=== PATIENT | female | born 1945 | race Caucasian/White ===

== ENCOUNTER 2019-08-04 08:21 | Day surgery (SDC) | payer MEDICARE, OTHER ==
[~2019-08-04] VITALS: Ht 162.6 cm; Wt 83.5 kg
[~2019-08-04 08:21] MED LIST: EXFORGE; Exforge 10-3201 EACH PO; GABA300 PO; Glyburide5 MG PO; HYDCHL25 PO; HYDMOR4 PO; HYDR.5TC TOP; HYDSUL200 PO; IBUP800 PO; LORA2 PO; METF500 PO; METPRE4DP PO; METTREX2.5 PO; PRED5 PO; REMICADE
== END 2019-08-04 10:38 | disposition home or self-care (01) ==
LOC: ORSCSDS 08:21
PROVIDERS: Ophthalmology
PROC: 08RK3JZ Replacement of Left Lens with Synthetic Substitute, Percutaneous Approach (ICD-10-PCS; principal; 2019-08-04 10:00)
DX: H25.12 Age-related nuclear cataract, left eye (principal); E11.36 Type 2 diabetes mellitus with diabetic cataract; I10 Essential (primary) hypertension; Z79.84 Long term (current) use of oral hypoglycemic drugs; Z79.899 Other long term (current) drug therapy
CPT/HCPCS: 82947; J2001; J2250; J3010; J3301; J7120; V2632

== ENCOUNTER 2019-09-01 07:33 | Day surgery (SDC) | payer MEDICARE, OTHER ==
--- NOTE | 2019-09-01 08:58 | NUR ---
09/01/19 0858 Jamia Redd A YELLOW AREA NOTED ON SCLERA OF EYE. SURGEON AWARE. PATIENT SAID IT'S FROM A RECENT INJECTION INTO HER EYE. SURGEON AWARE OF INJECTION.
== END 2019-09-01 09:26 | disposition home or self-care (01) ==
LOC: ORSCSDS 07:33
PROVIDERS: Ophthalmology
PROC: 08RJ3JZ Replacement of Right Lens with Synthetic Substitute, Percutaneous Approach (ICD-10-PCS; principal; 2019-09-01 09:00)
DX: H25.11 Age-related nuclear cataract, right eye (principal); E11.9 Type 2 diabetes mellitus without complications; I10 Essential (primary) hypertension; Z79.899 Other long term (current) drug therapy; Z79.84 Long term (current) use of oral hypoglycemic drugs
CPT/HCPCS: 82947; J2001; J2250; J3010; J7120; V2632

== ENCOUNTER 2020-08-28 00:13 | Day surgery (SDC) | payer MEDICARE, OTHER | END 2020-08-28 11:27 | disposition home or self-care (01) | LOC: ATC 00:13 | DX: M05.79 Rheumatoid arthritis with rheumatoid factor of multiple sites without organ or systems involvement (principal); I10 Essential (primary) hypertension; Z79.899 Other long term (current) drug therapy; Z79.1 Long term (current) use of non-steroidal anti-inflammatories (NSAID); Z88.0 Allergy status to penicillin; Z88.2 Allergy status to sulfonamides; Z88.8 Allergy status to other drugs, medicaments and biological substances | CPT/HCPCS: 96365; J1602 ==

== ENCOUNTER 2020-10-23 00:08 | Day surgery (SDC) | payer MEDICARE, OTHER ==
--- NOTE | 2020-10-23 15:04 | NUR ---
PT ARRIVED TO THE UNIT WITH INITIAL BP OF 211/89 ON LEFT ARM. RECHECKED BP ON RIGHT ARM AND 206/82. 15 MIN LATER POLINA WHEATLEY DID A MANUAL CHECK ON LEFT ARM WITH READING OF 205/79. PT REPORTS NO CHEST PAIN, NO WEAKNESS IN EXTREMITIES, NO VISUAL CHANGES, NO HEADACHE. PT VISUALLY APPEARS WELL. DR JIANG NOTIFIED OF ELEVATED BY POLINA AGUILERA. OK TO GIVE SIMPONI ARIA WITH ELEVATED BP TODAY, THEN PT TO FOLLOW UP WITH PCP. PCP DR CHAVES CALLED AND OFFERED PT A 6:40PM APPOINTMENT TO BE SEEN TODAY FOR ELEVATED BP. PT UNABLE TO MAKE APPT. DR SUGGESTED PT TO BE SEEN IN ER AFTER INFUSION TODAY. PT AGREES. ER ENROBING MACHINE CORDERPOLINA GORE NOTIFIED THAT PT WILL BE ARRIVING TO ER FOR BP EVAL AT 1530 TODAY. PT REMAINS ASYMPTOMATIC WITH ELEVATED BP'S
[2020-10-23] MEDS ORDERED: Estrace Vagin42.5 GM TOP (15:36)
[2020-10-23] MEDS ORDERED: Ferrous Glucon324 M1 PO (15:36)
[2020-10-23] MEDS ORDERED: GLIP10 PO (15:37)
[2020-10-23] MEDS ORDERED: LOSA50 PO (15:37)
[2020-10-23] MEDS ORDERED: MAGNESIUM OXID500 MG PO (15:37)
[2020-10-23] MEDS ORDERED: OMEP20ER PO (15:38)
[2020-10-23] MEDS ORDERED: PIOG15 PO (15:38)
[2020-10-23] MEDS ORDERED: Hair, Skin & N1 EACH PO (15:38)
[2020-10-23] MEDS ORDERED: NORT25 PO (15:38)
[2020-10-23] MEDS ORDERED: TAMSULOSIN HCL0.4 MG PO (15:39)
[2020-10-23] MEDS ORDERED: SIMPONI AR50 MG/4 M1 IV (15:39)
[2020-10-23] MEDS ORDERED: TOCO1000 PO (15:40)
[2020-10-23] MEDS ORDERED: Vitamin C100 M1 PO (15:40)
== END 2020-10-23 15:25 | disposition home or self-care (01) ==
LOC: ATC 00:08
DX: M05.79 Rheumatoid arthritis with rheumatoid factor of multiple sites without organ or systems involvement (principal); I10 Essential (primary) hypertension; M54.5 Low back pain; Z79.1 Long term (current) use of non-steroidal anti-inflammatories (NSAID); Z79.84 Long term (current) use of oral hypoglycemic drugs; Z79.899 Other long term (current) drug therapy; Z88.0 Allergy status to penicillin; Z88.2 Allergy status to sulfonamides; Z88.8 Allergy status to other drugs, medicaments and biological substances; Z88.5 Allergy status to narcotic agent; Z91.018 Allergy to other foods
CPT/HCPCS: J1602

== ENCOUNTER 2020-10-23 15:26 | Emergency (ER) | payer MEDICARE, OTHER ==
[~2020-10-23] VITALS: Ht 160 cm; Wt 88.5 kg
[2020-10-23] MEDS ORDERED: Ferrous Glucon324 M1 PO (15:36)
[2020-10-23] MEDS ORDERED: Estrace Vagin42.5 GM TOP (15:36)
[2020-10-23] MEDS ORDERED: MAGNESIUM OXID500 MG PO (15:37)
[2020-10-23] MEDS ORDERED: LOSA50 PO (15:37)
[2020-10-23] MEDS ORDERED: GLIP10 PO (15:37)
[2020-10-23] MEDS ORDERED: Hair, Skin & N1 EACH PO (15:38)
[2020-10-23] MEDS ORDERED: PIOG15 PO (15:38)
[2020-10-23] MEDS ORDERED: NORT25 PO (15:38)
[2020-10-23] MEDS ORDERED: OMEP20ER PO (15:38)
[2020-10-23] MEDS ORDERED: SIMPONI AR50 MG/4 M1 IV (15:39)
[2020-10-23] MEDS ORDERED: TAMSULOSIN HCL0.4 MG PO (15:39)
[2020-10-23] MEDS ORDERED: TOCO1000 PO (15:40)
[2020-10-23] MEDS ORDERED: Vitamin C100 M1 PO (15:40)
== END 2020-10-23 15:43 | disposition home or self-care (01) ==
LOC: ER 15:26
DX: I10 Essential (primary) hypertension (principal); E11.9 Type 2 diabetes mellitus without complications; Z79.84 Long term (current) use of oral hypoglycemic drugs; Z79.52 Long term (current) use of systemic steroids; Z79.899 Other long term (current) drug therapy; Z88.2 Allergy status to sulfonamides; Z88.0 Allergy status to penicillin; Z91.018 Allergy to other foods; Z88.8 Allergy status to other drugs, medicaments and biological substances; Z88.5 Allergy status to narcotic agent
CPT/HCPCS: 99282

== ENCOUNTER 2024-10-14 02:28 | Day surgery (SDC) | payer MEDICARE, OTHER ==
[~2024-10-14 02:28] MED LIST changes: +Acetaminophen 325 MG TABLET PO SCH; +DiphenhydrAMINE HCl 50 MG/ML 1ML Vial IV SCH; +Estrace Vagin42.5 GM TOP; +Ferrous Glucon324 M1 PO; +GLIP10 PO; +Hair, Skin & N1 EACH PO; +LOSA50 PO; +MAGNESIUM OXID500 MG PO; +MethylPREDNISolone Sod Succ 40 MG VIAL IV SCH; +NORT25 PO; +OMEP20ER PO; +PIOG15 PO; +SIMPONI AR50 MG/4 M1 IV; +TAMSULOSIN HCL0.4 MG PO; +TOCO1000 PO; +Vitamin C100 M1 PO
[2024-10-14] MEDS ORDERED: DiphenhydrAMINE HCl 50 MG/ML 1ML Vial IV SCH (06:55)
[2024-10-14] MEDS ORDERED: Acetaminophen 325 MG TABLET PO SCH (07:00)
[2024-10-14] MEDS ORDERED: MethylPREDNISolone Sod Succ 40 MG VIAL IV SCH (07:00)
[2024-10-14 14:57] VITALS: BP 185/63
--- NOTE | 2024-10-14 15:10 | NUR ---
Pt states she has had this medication before in the past. Only takes tylenol as a pre med. Pt declined benedryl and solumedrol today.
[2024-10-14] MEDS ORDERED: Golimumab 150 MG in NS 100 ML IV SCH (15:15)
[2024-10-14 15:33] LABS: BASOPHILS ABSOLUTE AUTO 0.05 K/mm3 (0.00-0.23); BASOPHILS PERCENT AUTO 1 % (0-2); EOSINOPHILS ABSOLUTE AUTO 0.14 K/mm3 (0.00-0.68); EOSINOPHILS PERCENT AUTO 2 % (0-6); Hematocrit 34.3 % (33.0-51.0); Hemoglobin 10.9 g/dL (11.5-16.0); IMMATURE GRAN ABSOLUTE AUTO 0.02 K/mm3 (0.00-0.10); IMMATURE GRAN PERCENT AUTO 0 % (0-1); LYMPHOCYTES ABSOLUTE AUTO 2.83 K/mm3 (0.84-5.20); LYMPHOCYTES PERCENT AUTO 36 % (21-46); MONOCYTES ABSOLUTE AUTO 0.73 K/mm3 (0.16-1.47); MONOCYTES PERCENT AUTO 9 % (4-13); Mean Corpuscular HGB 29.5 pg (26.0-34.0); Mean Corpuscular HGB Conc 31.8 g/dL (31.5-36.5); Mean Corpuscular Volume 93 fL (80-100); Mean Platelet Volume 10.5 fL (9.1-12.4); NEUTROPHILS ABSOLUTE AUTO 4.08 K/mm3 (1.96-9.15); NEUTROPHILS PERCENT AUTO 52 % (41-73); Platelet Count 239 K/mm3 (150-400); RDW Standard Deviation 60.5 fL (35.1-46.3); Red Blood Cell Count 3.69 M/mm3 (3.80-5.20); White Blood Cell Count 7.85 K/mm3 (4.00-11.30)
[2024-10-14 16:01] LABS: C-REACTIVE PROTEIN, EXT RANGE <0.290 mg/dL (0.000-0.300)
[2024-10-14 16:02] LABS: Alanine Aminotransfer (ALT/SGP 29 U/L (12-78); Albumin, Blood 3.4 g/dL (3.4-5.0); Albumin/Globulin Ratio 0.8 (0.8-1.8); Alk Phos 69 U/L (50-136); Anion Gap 7 mmol/L (3-11); Aspartate Aminotrans (AST/SGOT 26 U/L (12-37); Bilirubin, Total 0.3 mg/dL (0.1-1.0); Blood Urea Nitrogen 20 mg/dL (8-24); Bun/Creatinine Ratio 27.7 (12.0-20.0); CO2, Blood 25 mmol/L (21-32); Calcium, Blood 9.7 mg/dL (8.5-10.1); Chloride, Blood 110 mmol/L (98-108); Creatinine, Blood 0.72 mg/dL (0.40-1.00); Glomerular Filtration Rate 85 (60-); Glucose, Blood 89 mg/dL (70-99); Potassium, Blood 4.1 mmol/L (3.5-5.5); Sodium, Blood 138 mmol/L (136-145); Total Protein, Blood 7.4 g/dL (6.4-8.2)
--- NOTE | 2024-10-14 16:47 | NUR ---
Labs results from today faxed to Dr. Christine's office.
== END 2024-10-14 23:00 | disposition home or self-care (01) ==
LOC: ATC 02:28
PROVIDERS: Internal Medicine Rheumatology
DX: M05.79 Rheumatoid arthritis with rheumatoid factor of multiple sites without organ or systems involvement (principal); I10 Essential (primary) hypertension; Z87.440 Personal history of urinary (tract) infections; Z79.899 Other long term (current) drug therapy; Z79.84 Long term (current) use of oral hypoglycemic drugs; Z79.52 Long term (current) use of systemic steroids; Z88.0 Allergy status to penicillin; Z88.1 Allergy status to other antibiotic agents; Z88.8 Allergy status to other drugs, medicaments and biological substances; Z88.2 Allergy status to sulfonamides
CPT/HCPCS: 80053; 85025; 86140; 96365; A9270; J1602

== ENCOUNTER 2024-11-12 05:04 | Day surgery (SDC) | payer MEDICARE, OTHER ==
[~2024-11-12] VITALS: Wt 78.7 kg
[~2024-11-12 05:04] MED LIST changes: -Acetaminophen 325 MG TABLET PO SCH; -DiphenhydrAMINE HCl 50 MG/ML 1ML Vial IV SCH; -MethylPREDNISolone Sod Succ 40 MG VIAL IV SCH
[2024-11-12] MEDS ORDERED: MethylPREDNISolone Sod Succ 40 MG VIAL IV SCH (06:40)
[2024-11-12] MEDS ORDERED: Acetaminophen 325 MG TABLET PO SCH (06:40)
[2024-11-12] MEDS ORDERED: DiphenhydrAMINE HCl 50 MG/ML 1ML Vial IV SCH (06:40)
[2024-11-12 14:30] VITALS: BP 133/75
[2024-11-12] MEDS ORDERED: Golimumab 150 MG in NS 100 ML IV SCH (14:50)
== END 2024-11-12 15:50 | disposition home or self-care (01) ==
LOC: ATC 05:04
DX: M05.79 Rheumatoid arthritis with rheumatoid factor of multiple sites without organ or systems involvement (principal); I10 Essential (primary) hypertension; Z79.1 Long term (current) use of non-steroidal anti-inflammatories (NSAID); Z79.84 Long term (current) use of oral hypoglycemic drugs; Z79.899 Other long term (current) drug therapy; Z88.2 Allergy status to sulfonamides; Z88.0 Allergy status to penicillin; Z88.8 Allergy status to other drugs, medicaments and biological substances
CPT/HCPCS: 96365; A9270; J1602

== ENCOUNTER → 2025-10-19 | Outpatient (CLI) | payer MEDICARE, OTHER ==
[2025-10-24 12:10] LABS: CALCIUM, URINE - PER 24H 40 mg/d (100-250); CALCIUM, URINE - PER VOLUME 2.1 mg/dL; CHLORIDE, URINE - PER 24H 80 mmol/d (140-250); CHLORIDE, URINE - PER VOLUME 42 mmol/L; CITRIC ACID, URINE - PER 24H 116 mg/d (320-1240); CITRIC ACID,URINE - PER VOLUME 61 mg/L; CREATININE, URINE - PER 24H 646 mg/d (500-1400); CREATININE, URINE - PER VOLUME 34 mg/dL; HOURS COLLECTED 24 hr; MAGNESIUM, URINE - PER VOLUME 1.9 mg/dL; MAGNESIUM, URINE PER 24H 36 mg/d (12-199); OXALATE, URINE - PER 24H 51 mg/d (13-40); OXALATE, URINE - PER VOLUME 27 mg/L; PHOSPHORUS, URINE - PER 24H 399 mg/d (400-1300); PHOSPHORUS, URINE - PER VOLUME 21 mg/dL; POTASSIUM, URINE - PER 24H 40 mmol/d (25-125); POTASSIUM, URINE - PER VOLUME 21 mmol/L; SODIUM, URINE - PER 24H 91 mmol/d (51-286); SODIUM, URINE - PER VOLUME 48 mmol/L; SULFATE, URINE - PER 24H < 5 mmol/d (6-30); SULFATE, URINE - PER VOLUME <5 mmol/L; URIC ACID, URINE - PER 24H 198 mg/d (250-750); URIC ACID, URINE - PER VOLUME 10.4 mg/dL; URINE SUPERSATURATION INTERP Normal; URINE SUPERSATURATION, CAHPO4 0.16; URINE SUPERSATURATION, CAOX 3.59; URINE SUPERSATURATION, UA CALC 0.23
== END ==
LOC: LAB SHORT 07:30 → LAB 07:30 → EDSTATUS 10-14 08:15 → LAB FUT 10-14 08:15
PROVIDERS: Urology
DX: E11.8 Type 2 diabetes mellitus with unspecified complications (principal); D41.4 Neoplasm of uncertain behavior of bladder
CPT/HCPCS: 81003; 81050; 82131; 82140; 82340; 82436; 82507; 82570; 83735; 83935; 83945; 84105; 84133; 84300; 84392; 84560